=== PATIENT | male | born 1985 | race Two or more races ===

== ENCOUNTER 2020-03-08 07:46 | Emergency (ER) | payer OTHER ==
[2020-03-08 08:26] LABS: ABSOLUTE EOSINOPHILS # (AUTO) 0.1 10^3/uL (0.0-0.6); ABSOLUTE LYMPHOCYTES (AUTO) 2.4 10^3/uL (0.5-4.7); ABSOLUTE MONOCYTES (AUTO) 0.5 10^3/uL (0.1-1.4); ABSOLUTE NEUT (AUTO) 3.1 10^3/uL (1.7-8.2); BASOPHILS % (AUTO) 0.5 % (0-2); HEMATOCRIT 46.2 % (37.9-51.0); HEMOGLOBIN 16.2 g/dL (13.5-17.0); LYMPHOCYTES % (AUTO) 38.7 % (13-45); MEAN CORPUSCULAR HEMOGLOBIN 31.4 pg (27.0-33.4); MEAN CORPUSCULAR VOLUME 90 fl (80-97); MONOCYTES % (AUTO) 7.9 % (3-13); PLATELET COUNT 187 10^3/uL (150-450); RED BLOOD COUNT 5.14 10^6/uL (4.35-5.55); RED CELL DISTRIBUTION WIDTH 13.1 % (11.5-14.0); SEGMENTED NEUTROPHILS % (AUTO) 50.9 % (42-78); TOTAL CELLS COUNTED % (AUTO) 100 %; WHITE BLOOD COUNT 6.1 10^3/uL (4.0-10.5)
[2020-03-08 08:36] LABS: APPEARANCE,URINE CLEAR; BILIRUBIN,URINE NEGATIVE (NEGATIVE); COLOR,URINE STRAW; GLUCOSE, URINE NEGATIVE (NEGATIVE); KETONES,URINE NEGATIVE (NEGATIVE); LEUKOCYTE ESTERASE,URINE NEGATIVE (NEGATIVE); NITRITE,URINE NEGATIVE (NEGATIVE); PROTEIN,URINE NEGATIVE (NEGATIVE); URINE SPECIFIC GRAVITY 1.009; UROBILINOGEN,URINE NEGATIVE mg/dL (<2.0)
[2020-03-08] MEDS ORDERED: NORMAL SALINE 1000 ML 1,000 ML IV ONE (08:41)
[2020-03-08] MEDS ORDERED: ONDANSETRON HCL INJ/PF 4 MG/2 ML SDV IV ONE (08:42)
[2020-03-08 09:00] LABS: ALBUMIN 4.9 g/dL (3.5-5.0); ALKALINE PHOSPHATASE 80 U/L (38-126); ANION GAP 9 (5-19); ASPARTATE AMINO TRANSFERASE 43 U/L (17-59); BILIRUBIN,TOTAL 1.4 mg/dL (0.2-1.3); BLOOD UREA NITROGEN 15 mg/dL (7-20); CALCIUM 9.7 mg/dL (8.4-10.2); CARBON DIOXIDE 27 mmol/L (22-30); CHLORIDE 103 mmol/L (98-107); GLUCOSE 90 mg/dL (75-110); POTASSIUM 4.2 mmol/L (3.6-5.0); TOTAL PROTEIN 8.1 g/dL (6.3-8.2)
--- NOTE | 2020-03-08 10:16 | ER Document Report ---
Entered by KAMERON LAUGHLIN SCRIBE 03/08/20 0808 Acting as scribe for:RYDER FRANKS MD ED GI/ - General Chief Complaint: Abdominal Pain Stated Complaint: ABDOMINAL PAIN Primary Care Provider: LUKASZ VIDAL [Primary Care Provider] - Follow up as needed Mode of Arrival: Ambulatory Information source: Patient Notes: This 35 year old male patient presents to the ED today with complaints of LLQ abdominal pain that started x1 week ago, worse last night. Patient states that the pain is exacerbated by eating and drinking. He notes associated nausea and vomiting. He denies any change in bowel or urinary habits. Denies unintentional weight loss, night sweats, melena, hematochezia, rectal bleeding, or history of hemorrhoids. He mentions that he had what sounds like a gallbladder workup x3 months ago at the OR in [place] that was unremarkable and was supposed to have a colonoscopy and upper endoscopy done, but it has been delayed due to the pandemic. He also repor ts a history of appendectomy in 2007 and hepatic steatosis. Denies use of tobacco, alcohol, or recreational drugs. - Related Data Allergies/Adverse Reactions: No Known Allergies Allergy (Unverified 03/08/20 07:58) Past Medical History - General Information source: Patient - Social History Smoking Status: Former Smoker Cigarette use (# per day): No Chew tobacco use (# tins/day): No Smoking Education Provided: No Frequency of alcohol use: None Drug Abuse: None Family History: Reviewed & Not Pertinent Patient has suicidal ideation: No Patient has homicidal ideation: No GI Medical History: Reports: Other - Hx Hepatic Steatosis Past Surgical History: Reports: Hx Appendectomy - 2007, Hx Orthopedic Surgery - Right arm Review of Systems - Review of Systems Constitutional: See HPI. denies: Chills, Weight loss EENT: No symptoms reported Cardiovascular: No symptoms reported Respiratory: No symptoms reported Gastrointestinal: See HPI, Abdominal pain, Nausea, Vomiting. denies: Blood streaked bowels, Black stools, Rectal bleeding Genitourinary: No symptoms reported Male Genitourinary: No symptoms reported Musculoskeletal: No symptoms reported Skin: No symptoms reported Hematologic/Lymphatic: No symptoms reported Neurological/Psychological: No symptoms reported -: Yes All other systems reviewed and negative Physical Exam - Vital signs Vitals: Temp Pulse Resp BP Pulse Ox 98.1 F 74 18 141/92 H 96 03/08/20 07:49 03/08/20 07:49 03/08/20 07:49 03/08/20 07:49 03/08/20 07:49 Interpretation: Normal - General General appearance: Appears well, Alert In distress: None - HEENT Head: Normocephalic, Atraumatic Eyes: Normal Pupils: PERRL Neck: Normal, Supple - Respiratory Respiratory status: No respiratory distress Chest status: Nontender Breath sounds: Normal Chest palpation: Normal - Cardiovascular Rhythm: Regular Heart sounds: Normal auscultation Murmur: No Friction rub: No Gallop: None auscultated - Abdominal Inspection: Normal Distension: No distension Bowel sounds: Normal Tenderness: Tender - LLQ tenderness to palpation. No: Rebound Organomegaly: No organomegaly - Back Back: Normal, Nontender. No: CVA tenderness - Extremities General upper extremity: Normal inspection General lower extremity: Normal inspection. No: Edema - Neurological Neuro grossly intact: Yes Orientation: AAOx4 Harleen Coma Scale Eye Opening: Spontaneous [place] Coma Scale Verbal: Oriented [place] Coma Scale Motor: Obeys Commands Harleen Coma Scale Total: 15 - Psychological Associated symptoms: Normal affect, Normal mood - Skin Skin Temperature: Warm Skin Moisture: Dry Skin Color: Normal Course - Re-evaluation Re-evalutation: 03/08/20 12:32 Patient resting comfortably not showing any any signs of distress denies any abdominal pain at this time. - Vital Signs Vital signs: Temp Pulse Resp BP Pulse Ox 98.1 F 74 18 141/92 H 96 03/08/20 07:49 03/08/20 07:49 03/08/20 07:49 03/08/20 07:49 03/08/20 07:49 03/08/20 12:33 Vital signs stable blood pressure is 141/92 afebrile - Laboratory Result Diagrams: 03/08/20 08:05 03/08/20 08:05 Laboratory results interpreted by me: 03/08/20 08:05 Total Bilirubin 1.4 H ALT 116 H 03/08/20 08:05 03/08/20 08:05 MCV 90 fl (80-97) 03/08/20 08:05 MCH 31.4 pg (27.0-33.4) 03/08/20 08:05 MCHC 35.0 g/dL (32.0-36.0) 03/08/20 08:05 RDW 13.1 % (11.5-14.0) 03/08/20 08:05 Seg Neutrophils % 50.9 % (42-78) 03/08/20 08:05 Chloride 103 mmol/L (98-107) 03/08/20 08:05 Carbon Dioxide 27 mmol/L (22-30) 03/08/20 08:05 Anion Gap 9 (5-19) 03/08/20 08:05 Est GFR ( Amer) > 60 (>60) 03/08/20 08:05 Glucose 90 mg/dL (75-110) 03/08/20 08:05 Lactic Acid 0.7 mmol/L (0.7-2.1) 03/08/20 09:20 Calcium 9.7 mg/dL (8.4-10.2) 03/08/20 08:05 Total Bilirubin 1.4 mg/dL (0.2-1.3) H 03/08/20 08:05 AST 43 U/L (17-59) 03/08/20 08:05 Alkaline Phosphatase 80 U/L (38-126) 03/08/20 08:05 Total Protein 8.1 g/dL (6.3-8.2) 03/08/20 08:05 Albumin 4.9 g/dL (3.5-5.0) 03/08/20 08:05 Lipase 89.6 U/L (23-300) 03/08/20 08:05 Urine Color STRAW 03/08/20 08:05 Urine Appearance CLEAR 03/08/20 08:05 Urine pH 6.0 (5.0-9.0) 03/08/20 08:05 Ur Specific [place] 1.009 03/08/20 08:05 Urine Protein NEGATIVE mg/dL (NEGATIVE) 03/08/20 08:05 Urine Glucose (UA) NEGATIVE mg/dL (NEGATIVE) 03/08/20 08:05 Urine Ketones NEGATIVE mg/dL (NEGATIVE) 03/08/20 08:05 Urine Blood NEGATIVE (NEGATIVE) 03/08/20 08:05 Urine Nitrite NEGATIVE (NEGATIVE) 03/08/20 08:05 Ur Leukocyte Esterase NEGATIVE (NEGATIVE) 03/08/20 08:05 Urine WBC (Auto) 0 /HPF 03/08/20 08:05 Urine RBC (Auto) 0 /HPF 03/08/20 08:05 Laboratories essentially within normal range patient is on mild elevation in ALT. On CT scan patient was noted to have hepatic steatosis no other acute findings. - Diagnostic Test Radiology reviewed: Image reviewed, Reports reviewed Radiology results interpreted by me: 03/08/20 12:03 Abdomen/Pelvis CT 03/08/20 11:30 IMPRESSION: No acute intra-abdominal abnormality. 03/08/20 12:35 CT scan abdomen and pelvis with IV and oral contrast disclose no acute intra- abdominal abnormality. Discharge - Discharge Clinical Impression: Abdominal pain Condition: Stable Disposition: HOME, SELF-CARE Instructions: Abdominal Pain ([facility]), Bulk Laxatives Referrals: LOCALMD,NO [Primary Care Provider] - Follow up as needed I personally performed the services described in the documentation, reviewed and edited the documentation which was dictated to the scribe in my presence, and it accurately records my words and actions.
--- NOTE | 2020-03-08 11:57 | RADIOLOGY REPORT (SQ) ---
EXAM DESCRIPTION: CT ABD/PELVIS WITH IV ORAL IMAGES COMPLETED DATE/TIME: 03/08/2020 11:35 am REASON FOR STUDY: llq abd pain COMPARISON: None. TECHNIQUE: CT scan of the abdomen and pelvis performed using helical scanning technique with dynamic intravenous contrast injection. No oral contrast. Images reviewed with lung, soft tissue, and bone windows. Reconstructed coronal and sagittal MPR images reviewed. Delayed images for evaluation of the urinary system also acquired. All images stored on PACS. All CT scanners at this facility use dose modulation, iterative reconstruction, and/or weight based d osing when appropriate to reduce radiation dose to as low as reasonably achievable (ALARA). [facility]: Dose Right [facility]: CareDose [facility]: Dose Right [facility]: Teradose 4D [facility]: CiraNova CONTRAST TYPE AND DOSE: Contrast/concentration: Isovue 350.00 mmol/ml; Total Contrast Delivered: 97. 0 ml; Total Saline Delivered: 70.0 ml RENAL FUNCTION: GFR > 60. RADIATION DOSE: CT Rad equipment meets quality standard of care and radiation dose reduction techniq ues were employed. CTDIvol: 8.8 - 12.6 mGy. DLP: 1147 mGy-cm. LIMITATIONS: None. FINDINGS: LOWER CHEST: No acute abnormality. LIVER: The relative low attenuation of the hepatic parenchyma compared to the splenic parenchyma on t he portal venous phase is suggestive of underlying hepatic steatosis. The portal veins are patent. There is no hepatic mass. SPLEEN: No splenomegaly or splenic mass. PANCREAS: No acute gross abnormality of the pancreas. GALLBLADDER: No acute gross abnormality of the gallbladder. ADRENAL GLANDS: No mass or asymmetry. RIGHT KIDNEY AND URETER: No solid mass, hydronephrosis, nephrolithiasis, hydroureter or ureterolithia sis. LEFT KIDNEY AND URETER: No solid mass, hydronephrosis, nephrolithiasis, hydroureter or ureterolithias is. AORTA AND VESSELS: No aneurysm or dissection of the abdominal aorta. RETROPERITONEUM: No retroperitoneal adenopathy, hemorrhage or mass. BOWEL AND PERITONEAL CAVITY: No bowel obstruction, bowel wall thickening or pericolonic/ perienteric inflammation. No mesenteric adenopathy, free intraperitoneal fluid or mesenteric/ omental inflammati on. APPENDIX: Surgically absent. PELVIS: No acute abnormality. ABDOMINAL WALL: No mass or hernia. BONES: No fracture or osseous lesion. OTHER: No other findings. IMPRESSION: No acute intra-abdominal abnormality. TECHNICAL DOCUMENTATION: JOB ID: [id number] Quality ID # [id number]: Final reports with documentation of one or more dose reduction techniques (e.g., Au tomated exposure control, adjustment of the mA and/or kV according to patient size, use of iterative reconstruction technique) 2010 [employer]- All Rights Reserved Reading location - IP/workstation name: [email or web address]
[2020-03-08 12:55] VITALS: BP 118/86
== END 2020-03-08 12:57 | disposition home or self-care (01) ==
LOC: ER 07:46
DX: R10.32 Left lower quadrant pain (principal); R10.814 Left lower quadrant abdominal tenderness; R11.2 Nausea with vomiting, unspecified; R74.01 Elevation of levels of liver transaminase levels; Z87.891 Personal history of nicotine dependence; Z87.19 Personal history of other diseases of the digestive system; Z90.49 Acquired absence of other specified parts of digestive tract
CPT/HCPCS: 99285; 96361; 96374; 36415; 83605; 83690; 85025; 80053; 81001; 74177; J2405; J7030